=== PATIENT | female | born 1970 | race Two or more races ===

== ENCOUNTER 2018-07-30 10:17 | Outpatient (CLI) | payer OTHER | END 2018-07-30 10:19 | disposition home or self-care (01) | LOC: RAD 501 10:17 | DX: M54.5 Low back pain (principal) ==

== ENCOUNTER 2018-10-01 06:35 | Day surgery (SDC) | payer OTHER | END 2018-10-01 11:10 | disposition home or self-care (01) | LOC: AMB-ENDOS 06:35 | DX: K63.5 Polyp of colon (principal) ==

== ENCOUNTER 2020-06-09 06:45 | Day surgery (SDC) | payer OTHER | END 2020-06-09 15:15 | disposition home or self-care (01) | LOC: CIR.AMB 06:45 | PROVIDERS: ATTEND Obstetrics & Gynecology Gynecologic Oncology | DX: D27.1 Benign neoplasm of left ovary (principal); Z20.828 Contact with and (suspected) exposure to other viral communicable diseases ==

== ENCOUNTER 2020-12-28 07:51 | Outpatient (CLI) | payer OTHER | END 2020-12-28 08:11 | disposition home or self-care (01) | LOC: MAMO-SONO 07:51 | PROVIDERS: ATTEND Obstetrics & Gynecology Maternal & Fetal Medicine | DX: N63.21 Unspecified lump in the left breast, upper outer quadrant (principal) ==

== ENCOUNTER 2023-08-07 07:24 | Outpatient (CLI) | payer OTHER | END 2023-08-07 07:25 | disposition home or self-care (01) | LOC: NUCLEAR 07:24 | PROVIDERS: ATTEND Physical Medicine & Rehabilitation | DX: M06.4 Inflammatory polyarthropathy (principal) ==

== ENCOUNTER 2024-05-30 10:16 | Emergency (ER) | payer OTHER ==
[~2024-05-30] VITALS: Ht 157.5 cm; Wt 50.8 kg
[2024-05-30] MEDS ORDERED: TEZSPIRE210 MG/1.1 SQ (10:32)
[2024-05-30] MEDS ORDERED: TRELEGY ELLIPT1 EAC1 IH (10:32)
[2024-05-30] MEDS ORDERED: LACTOBACILLUS ACIDOPHILUS 1 CAP CAP PO STA (10:46)
[2024-05-30 11:15] LABS: HEMATOCRIT 40.7 % (36.0-45.00); HEMOGLOBIN 13.5 g/dL (12.0-15.00); MEAN CELL VOLUME 93.3 fL (80.00-100.00); MEAN CORPUSCULAR HEMOGLOBIN 30.9 pg (27.00-32.0); MEAN CORPUSCULAR HGB CONC 33.1 g/dl (32.0-36.0); PLATELET COUNT 195 K/uL (150-450); RED BLOOD COUNT 4.36 M/uL (4.00-6.00); RED CELL DISTRIBUTION WIDTH 13.4 % (11.5-14.5)
[2024-05-30 11:32] LABS: CREATININE SERUM 0.66 mg/dL (0.55-1.02); GFR 92.98; POTASSIUM 4.39 mEq/L (3.5-5.1)
[2024-05-30 12:08] LABS: URINE APPEARANCE Clear; URINE BILIRRUBIN Negative (NEGATIVE); URINE BLOOD Negative; URINE COLOR Yellow; URINE GLUCOSE Negative (NEGATIVE); URINE KETONE Negative (NEGATIVE); URINE LEUKOCYTE Negative; URINE NITRATE Negative; URINE PROTEIN Negative (NEGATIVE); URINE UROBILINOGEN 0.2 E.U./dl
[2024-05-30 12:11] LABS: URINE WBC 2.4 uL (0.0-23.2)
[2024-05-30 12:18] LABS: URINE BACTERIA 3.7 uL (0.0-1933); URINE EPITHELIAL CELLS 1.3 uL (0.0-38.8)
== END 2024-05-30 13:02 | disposition home or self-care (01) ==
LOC: ER 10:17
PROVIDERS: General Practice
DX: R10.2 Pelvic and perineal pain (principal); Z91.013 Allergy to seafood; Z91.018 Allergy to other foods

== ENCOUNTER 2024-07-25 09:56 | Emergency (ER) | payer OTHER ==
[~2024-07-25] VITALS: Ht 157.5 cm; Wt 52.2 kg
[~2024-07-25 09:56] MED LIST: TEZSPIRE210 MG/1.1 SQ; TRELEGY ELLIPT1 EAC1 IH
[2024-07-25] MEDS ORDERED: FORTEO2.4 ML SQ (10:35)
[2024-07-25 11:58] LABS: HEMOGLOBIN 14.3 g/dL (12.0-15.00); MEAN CELL VOLUME 91.8 fL (80.00-100.00); MEAN CORPUSCULAR HEMOGLOBIN 31.1 pg (27.00-32.0); MEAN CORPUSCULAR HGB CONC 33.9 g/dl (32.0-36.0); PLATELET COUNT 168 K/uL (150-450); RED BLOOD COUNT 4.58 M/uL (4.00-6.00); RED CELL DISTRIBUTION WIDTH 14.3 % (11.5-14.5)
[2024-07-25 12:34] LABS: CALCIUM 9.1 mg/dL (8.5-10.1); CREATININE SERUM 0.58 mg/dL (0.55-1.02); GFR 107.93; POTASSIUM 4.15 mEq/L (3.5-5.1)
== END 2024-07-25 14:15 | disposition home or self-care (01) ==
LOC: ER 09:58
PROVIDERS: General Practice
DX: J06.9 Acute upper respiratory infection, unspecified (principal); R07.89 Other chest pain; I49.9 Cardiac arrhythmia, unspecified; Z20.822 Contact with and (suspected) exposure to COVID-19; Z91.013 Allergy to seafood; Z91.018 Allergy to other foods

== ENCOUNTER → 2024-08-05 | Day surgery (SDC) | payer OTHER ==
--- NOTE | 2024-08-04 22:37 | NUR ---
PACIENTE ALERTA Y ORIENTADA X3, REFIERE DOLOR EN EL RLQ Y NAUSEAS.
--- NOTE | 2024-08-04 22:57 | NUR ---
SE ORIENTA A PACIENTE SOBRE TX MEDICO, REFIERE ENTENDER. SE REALIZAN MUESTRAS DE LABORATORIO BAJO MEDIDAS ASEPTICAS. SE ADMINISTRAN MEDICAMENTOS BEA ORDEN MEDICA. SE COORD[address] CT. PENDIENTE RE-EVALUACION MEDICA.
[~2024-08-05] VITALS: Ht 157.5 cm; Wt 52.2 kg
[~2024-08-05] MED LIST changes: +0.9 % SODIUM CHLORIDE 1,000 ML IV STA; +FORTEO2.4 ML SQ; +KETOROLAC TROMETHAMINE 30 MG VIAL IV ONE; +KETOROLAC TROMETHAMINE 30 MG VIAL IV STA; +MORPHINE SULFATE 4 MG/ML CARTRIDGE IV PRN; +MORPHINE SULFATE 4 MG/ML VIAL IV ONE; +MORPHINE SULFATE 4 MG/ML VIAL IV PRN; +PROMETHAZINE HCL 50 MG/ML AMPUL IM ONE; +SUGAMMADEX SODIUM 200 MG/2 ML VIAL IV ONE
[2024-08-05 00:45] LABS: HEMATOCRIT 41.2 % (36.0-45.00); HEMOGLOBIN 13.4 g/dL (12.0-15.00); MEAN CORPUSCULAR HEMOGLOBIN 30.7 pg (27.00-32.0); MEAN CORPUSCULAR HGB CONC 32.6 g/dl (32.0-36.0); PLATELET COUNT 227 K/uL (150-450); RED BLOOD COUNT 4.38 M/uL (4.00-6.00); RED CELL DISTRIBUTION WIDTH 13.6 % (11.5-14.5)
[2024-08-05 01:21] LABS: CREATININE SERUM 0.64 mg/dL (0.55-1.02); GFR 96.34; POTASSIUM 4.23 mEq/L (3.5-5.1)
[2024-08-05 01:36] LABS: URINE APPEARANCE Clear; URINE BILIRRUBIN Negative (NEGATIVE); URINE BLOOD Negative; URINE COLOR Yellow; URINE GLUCOSE Negative (NEGATIVE); URINE KETONE 15 (NEGATIVE); URINE LEUKOCYTE Negative; URINE NITRATE Negative; URINE PROTEIN Negative (NEGATIVE); URINE UROBILINOGEN 0.2 E.U./dl
[2024-08-05 01:39] LABS: URINE BACTERIA 24.4 uL (0.0-1933); URINE EPITHELIAL CELLS 1.8 uL (0.0-38.8); URINE RBC 8.6 uL (0.0-20.8)
[2024-08-05 02:18] LABS: URINE WBC 0.7 uL (0.0-23.2)
--- NOTE | 2024-08-05 07:19 | NUR ---
SE RECIBE PTE ALERTA Y ORIENTADA X3 LA MISMA EN TRICIA BAJA POR SEGURIDAD. CANALIZACION EN BRAZO DERECHO POR DONDE BAJA .9 NSS @200ML/HR. SE REALIZAN VITALES Y SE DOCUMENTAN EN SISTEMA. PACIENTE EN ESPERA DE DR AMADO SE LE EDUCA SOBRE LA ESPERA DE EL MISMO.
[2024-08-05 21:03] VITALS: BP 120/61; O2SAT 100
== END | disposition home or self-care (01) ==
LOC: EDSTATUS 08-04 22:27 → ER 08-04 22:27 → CIR.AMB 11:41 → ER 11:41 → SEC-K 11:41 → O/R 14:13
PROVIDERS: Emergency Medicine; ATTEND General Practice
DX: N83.511 Torsion of right ovary and ovarian pedicle (principal); D39.11 Neoplasm of uncertain behavior of right ovary; R10.2 Pelvic and perineal pain; Z91.013 Allergy to seafood